=== PATIENT | male | born 1990 | race Caucasian/White ===

== ENCOUNTER 2019-08-26 23:55 | Emergency (ER) | payer OTHER ==
[~2019-08-26] VITALS: Ht 170.2 cm; Wt 89.8 kg
[2019-08-27 00:10] VITALS: BP 123/66
--- NOTE | 2019-08-27 00:15 | NUR ---
Dr. Pinedo examining patient.
--- NOTE | 2019-08-27 00:17 | NUR ---
PT TAKEN TO BED 4
[2019-08-27] MEDS ORDERED: FAMOTIDINE 20 MG TAB PO ONE (00:20)
[2019-08-27] MEDS ORDERED: LIDOCAINE VISCOUS 2% 20 ML UDC PO ONE (00:20)
[2019-08-27] MEDS ORDERED: ALUMINUM HYD/MAG/SIMETHICONE 30 ML UDC PO ONE (00:20)
--- NOTE | 2019-08-27 00:20 | NUR ---
LAB AT BEDSIDE
[2019-08-27 00:37] LABS: BASOPHILS # (AUTO) 0.1 K/uL (0.00-0.22); BASOPHILS % (AUTO) 0.6 % (0.0-2.0); EOSINOPHILS # (AUTO) 0.2 K/uL (0-0.4); EOSINOPHILS % (AUTO) 2.1 % (0.0-4.0); HEMATOCRIT 43.5 % (36-52); HEMOGLOBIN 14.3 g/dL (12.0-18.0); LYMPHOCYTES # (AUTO) 2.4 K/uL (2.0-11.5); LYMPHOCYTES % (AUTO) 29.7 % (20.5-51.1); MEAN CORPUSCULAR HEMOGLOBIN 30 pg (27-31); MEAN CORPUSCULAR HGB CONC 33 g/dL (33-37); MEAN CORPUSCULAR VOLUME 90.8 fL (80-94); MONOCYTES # (AUTO) 0.8 K/uL (0.8-1.0); MONOCYTES % (AUTO) 9.9 % (1.7-9.3); NEUTROPHILS # (AUTO) 4.8 K/uL (1.8-7.7); NEUTROPHILS % (AUTO) 57.7 % (42.2-75.2); PLATELET COUNT (AUTO) 243 K/uL (140-450); RED BLOOD CELL COUNT(AUTO) 4.78 MIL/uL (4.20-6.10); WHITE BLOOD COUNT (AUTO) 8.2 K/uL (4.8-10.8)
--- NOTE | 2019-08-27 00:44 | NUR ---
PT STATES AFTER GI MEDS PAIN IS CURRENTLY 1-05/18
[2019-08-27 00:51] LABS: ALBUMIN 4.1 g/dL (3.4-5.0); ANION GAP 10.7 (8-16); CREATININE 1.1 mg/dL (0.6-1.3); POTASSIUM 3.7 mmol/L (3.5-5.1); TOTAL BILIRUBIN 0.3 mg/dL (0.0-1.0)
[2019-08-27 01:15] VITALS: BP 123/66
== END 2019-08-27 01:14 | disposition home or self-care (01) ==
LOC: EDBD 23:55 → MED 23:55
DX: K21.9 Gastro-esophageal reflux disease without esophagitis (principal)
CPT/HCPCS: 36415; 80053; 83690; 85025; 99284